=== PATIENT | male | born 2005 | race Caucasian/White ===

== ENCOUNTER 2025-10-11 22:34 | Emergency (ER) | payer BC ==
[2025-10-11] MEDS ORDERED: Acetaminophen 500 MG TAB ONE (23:14)
== END 2025-10-12 00:33 | disposition home or self-care (01) ==
LOC: CSHERS 22:34
DX: S06.0X0A Concussion without loss of consciousness, initial encounter (principal); S16.1XXA Strain of muscle, fascia and tendon at neck level, initial encounter; S39.012A Strain of muscle, fascia and tendon of lower back, initial encounter; V43.52XA Car driver injured in collision with other type car in traffic accident, initial encounter
CPT/HCPCS: 72040; 99284